=== PATIENT | male | born 1950 | race Caucasian/White ===

== ENCOUNTER → 2016-12-01 | Outpatient (CLI) | payer MEDICARE ==
[2016-11-09 11:40] VITALS: BP 156/102
[~2016-12-01] MED LIST: AMIO200T2 PO; AMIO400T4 PO; ASPI325T11 PO; CARV25TA2 PO; FURO20TA3 PO; LISI10TA2 PO; LISI2.5T PO; METO25TA9 PO; OMEG300C PO; POTA10TA10 PO; WARF5TAB PO
[2016-12-01 13:08] LABS: INR 2.4 (0.8-1.1); PROTHROMBIN TIME PATIENT 24.7 SEC (11.7-14.0)
== END | disposition home or self-care (01) ==
LOC: LAB 12:02
PROVIDERS: ATTEND Internal Medicine Cardiovascular Disease
DX: Z79.01 Long term (current) use of anticoagulants (principal)
CPT/HCPCS: 36415; 85610

== ENCOUNTER 2018-12-20 20:06 | Emergency (ER) | payer OTHER ==
[2018-08-25 10:53] VITALS: BP 149/90
[~2018-12-20 20:06] MED LIST changes: +ALBU2.5V5 NEB; -AMIO200T2 PO; +AMIO200T4 PO; -AMIO400T4 PO; +AMIO400T5 PO; +AMIODARONE 150 MG/3 ML VIAL ONE; +AMLO10TA8 PO; +ASPI325T8 PO; +BENZ-8 PO; +EPINEPHrine SYRINGE 1 MG/10 ML SYRINGE ONE; +FURO40TA4 PO; +GLIP5TAB10 PO; +LISI-130 PO; +LISI-334 PO; +METO-239 PO; +METO100T7 PO; -METO25TA9 PO; +METO50TA6 PO; +OSEL75CA PO; -POTA10TA10 PO; +POTA10TA12 PO; +POTA20TA82 PO; +PRED20TA PO; +WARF-78 PO; -WARF5TAB PO
[2018-12-20] MEDS ORDERED: EPINEPHrine VIAL 30 MG/30 ML VIAL ONE (20:44)
--- NOTE | 2018-12-20 20:51 | PHYS DOC ---
Past Medical History Past Medical History: A-Fib, Asthma, CAD, Diabetes-Type II, High Cholesterol, Hypertension, LA Past Medical History Limited due to patient's current condition Past Surgical History: Coronary Bypass Surgery Additional Past Surgical Histo: 2013 Past Surgical History Limited due to patient's current condition Alcohol Use: None Drug Use: None Social History Limited due to patient's current condition Adult General Chief Complaint Chief Complaint: CPR/FULL ARREST HPI HPI 68 y/o male presents via EMS as CODE BLUE. Patient was with his girlfriend and reported not feeling well and having difficulty breathing. Patient subsequently became unresponsive and wasn't breathing and without pulse. EMS was called at 1934. EMS arrived and initiated CPR. A LMA was placed in route. Report PEA rhythm. Epinephrine was provided by EMS in route. EMS reports blood glucose was 167. Patient reportedly with history of prior CABG. HPI limited due to patient's current condition. Review of Systems Review of Systems ROS limited due to patient's current condition Current Medications Current Medications Current Medications Medications (Trade) Dose Ordered Sig/Juana Start Time Stop Time Status Last Admin Dose Admin Amiodarone HCl (Cordarone) 300 mg STK-MED ONCE 12/20/18 12:00 12/21/18 10:50 DC Epinephrine HCl (Adrenalin) 30 mg STK-MED ONCE 12/20/18 20:44 12/20/18 20:45 DC Epinephrine HCl (EPINEPHrine SYRINGE) 10 mg STK-MED ONCE 12/20/18 12:00 12/21/18 10:50 DC Allergies Allergies Allergies Coded Allergies Type Severity Reaction Last Updated Verified No Known Drug Allergies 11/18/13 No Physical Exam Physical Exam Constitutional: Unresponsive, cyanotic above shoulders HENT: Normocephalic, atraumatic, LMA placed by EMS in position Eyes: pupils dilated and unresponsive, no discharge. [] Neck: Supple, no swelling Cardiovascular: No pulse noted to both femoral and carotid Lungs & Thorax: Artificial bilateral breath sounds with bag valve mask Abdomen: Soft, mild distention Skin: Cool, dry, cyanosis noted above shoulder, venous stasis noted to BLE Extremities: No deformity noted, IO line noted to right tibia, 1+ edema Neurologic: GCS 3, unresponsive to painful stimuli Psychologic: Unable to assess Current Patient Data Lab Values Laboratory Tests Test 12/20/18 20:20 Glucose (Fingerstick) 202 mg/dL (70-99) H EKG EKG [] Radiology/Procedures Radiology/Procedures [] Course & Med Decision Making Course & Med Decision Making Patient presents with witnessed cardiopulmonary arrest. EMS initiated ACLS. ACLS continued upon arrival. Initial rhythm with PEA. LMA swapped to ETT by myself without interruption of compressions. Positive ETCO2 change and bilateral breath sounds. Glucose recheck and WNL. Epi x 11 rounds given. Patient did have one episode of Vfib requiring defibrillation and one episode of Vtach which were both treated with defibrillation. Amiodarone 300mg also provided. ROSC was obtained for only brief period of time and was not sustained. Patient also with interval significant amount of bright red blood from ETT. Concern for possible PE vs pulmonary contusion. Given patient's cardiac history cannot exclude massive AMI. Discussed patient dire condition and no sustainable return of spontaneous circulation after 1 hour of resuscitative efforts. Patient's family decided to discontinue further efforts. Time of called at 2045. Discussed with patient's PCP- Dr. Garcia who is willing to sign certificate. Dragon Disclaimer Dragon Disclaimer This electronic medical record was generated, in whole or in part, using a voice recognition dictation system. Intubation Intubation : Intubation Method: orotracheal Tube Size (cm): 8.0 Breath Sounds after Intubation: equal Progress Intubation performed with cuffed 8.0 ETT with Kay blade by ED physician. Utilized bogie for placement. Some blood noted in ETT during compressions which became increased during continued CPR. Departure Departure Impression: Primary Impression: Cardiopulmonary arrest Disposition: 20 Condition: Referrals: JULIO GARCIA MD (PCP) Critical Care Time Critical care time was 30 minutes which includes time at bedside, spent in discussion of patient's care with specialists and/or family members, with interpretation of laboratory and/or radiological studies and is exclusive of procedures. AMELIA BIRMINGHAM DO Dec 20, 2018 20:51
== END 2018-12-21 02:00 | disposition expired ==
LOC: ER 20:06
DX: I46.9 Cardiac arrest, cause unspecified (principal); I48.91 Unspecified atrial fibrillation; J45.909 Unspecified asthma, uncomplicated; E11.9 Type 2 diabetes mellitus without complications; E78.00 Pure hypercholesterolemia, unspecified; I10 Essential (primary) hypertension; I25.10 Atherosclerotic heart disease of native coronary artery without angina pectoris; I25.2 Old myocardial infarction; Z95.1 Presence of aortocoronary bypass graft
CPT/HCPCS: 31500; 82962; 92950; 99291; J0171; J0282